=== PATIENT | male | born 1970 | race Caucasian/White ===

== ENCOUNTER 2017-01-10 09:54 | Emergency (ER) | payer MEDICAID ==
[2017-01-10 09:59] VITALS: BP 135/54; PULSE 55; RESP 16; TEMP 97.7; O2SAT 96
--- NOTE | 2017-01-10 10:06 | EDPHY ---
H & P Stated Complaint: Right groin pain, radiating down right leg. Time Seen by Provider: 01/10/17 10:06 - Personal History Current Tetanus Diphtheria and Acellular Pertussis (TDAP): No Tetanus Vaccine Date: Does not vaccinate - Medical/Surgical History Hx Asthma: No Hx Chronic Respiratory Disease: Yes Hx Diabetes: No Hx Cardiac Disease: No Hx Renal Disease: No Hx Cirrhosis: No Hx Alcoholism: No Hx HIV/AIDS: No Hx Splenectomy or Spleen Trauma: No Other PMH: Bipolar, panic attacks, adhd, add, anxiety, chronic back pain, ulcer surgery, migraines, - Social History Smoking Status: Current every day smoker Constitutional: Initial Vital Signs Temperature (C) 36.5 C 01/10/17 09:54 Heart Rate 55 L 01/10/17 09:54 Respiratory Rate 16 01/10/17 09:54 Blood Pressure 135/54 H 01/10/17 09:54 O2 Sat (%) 96 01/10/17 09:54 O2 Delivery Mode Room Air Allergies/Adverse Reactions: No Known Allergies Allergy (Verified 01/07/16 10:04) Home Medications: Medication Instructions Recorded Thc 01/07/16 Medical Decision Making ED Course/Re-evaluation: CHIEF COMPLAINT: Right hip pain HISTORY OF PRESENT ILLNESS: The patient is a 46 y/o male presenting with a bulge and pain on his right hip. He did have a previous hip injury several years ago, but was not a candidate for a hip replacement. Denies weakness, paresthesias, fevers, urinary or bowel complaints. REVIEW OF SYSTEMS: A 10 point review of systems was performed and is negative with the exception of the elements mentioned in the history of present illness. PHYSICAL EXAM: HR, BP, O2 Sat, RR. Temp noted General Appearance: Alert, well hydrated, appropriate, and non-toxic appearing. Head: Atraumatic without scalp tenderness or obvious injury Eyes: Pupils equal, round, reactive to light and accommodation, EOMI, no trauma , no injection. Ears: Clear bilaterally, no perforation, normal landmarks Nose: Atraumatic, no rhinorrhea, clear. Throat: Mucus membranes moist. Neck: Supple, nontender, no lymphadenopathy. Respiratory: No retractions, no distress, no wheezes, and no accessory muscle use. Lungs are clear to auscultation bilaterally. Cardiovascular: Regular rate and rhythm, no murmurs, rubs, or gallops. Good capillary refill all extremities. Gastrointestinal: Abdomen is soft, nontender, non-distended, no masses, no rebound, no guarding, no peritoneal signs. Musculoskeletal: Orbital right hip pain on axial load and rotation. Otherwise normal active ROM of all extremities, atraumatic. Neurological: Alert, appropriate, and interactive. Non-focal neuro. Skin: No rashes, good turgor, no nodules on palpation. Past medical history:Bipolar, panic attacks, ADHD, ADD, anxiety, chronic back pain, migraines Past surgical history: Ulcer surgery Family history: Denies Social history: Lives in [place], single, has a service dog, smoker DIFFERENTIAL DIAGNOSIS: The differential diagnosis for the patient's hip pain included but was not limited to fracture, ligamentous injury, contusion, muscular strain. MEDICAL DECISION MAKING: The patient is a 46 y/o male presenting with orbital right hip pain on axial load and rotation. I did not find any bulge or hernia on exam. He will not need any imaging studies. Reassessed patient, he will be prescribed Percocet for his pain and a follow up with an orthopedic surgeon. Return precautions provided; patient is comfortable with this plan. Departure - Departure Disposition: Home, Routine, Self-Care Clinical Impression: Hip pain, right Condition: Good Instructions: Hip Pain (ED) Additional Instructions: 1. Follow up with an orthopedic surgeon within one week. 2. Return to the emergency department for worsening pain, swelling, numbness, weakness or other concerns. 3. Use ibuprofen in addition to prescribed pain medication as directed for pain. Referrals: Karin Walker MD [Medical Doctor] - As per Instructions Report Scribed for: Ish Medina Report Scribed by: Courtney Basurto Date of Report: 01/10/17 Time of Report: 10:30
== END 2017-01-10 11:51 | disposition home or self-care (01) ==
DX: M25.551 Pain in right hip (principal); F17.200 Nicotine dependence, unspecified, uncomplicated

== ENCOUNTER 2018-01-16 10:28 | Emergency (ER) | payer MEDICAID ==
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
[2018-01-16 11:36] VITALS: BP 132/74
== END 2018-01-16 11:35 | disposition home or self-care (01) ==
DX: S09.90XA Unspecified injury of head, initial encounter (principal); W22.8XXA Striking against or struck by other objects, initial encounter; Y92.818 Other transport vehicle as the place of occurrence of the external cause; Y93.9 Activity, unspecified; Y99.9 Unspecified external cause status